=== PATIENT | female | born 1955 | race Caucasian/White ===

== ENCOUNTER 2018-04-17 23:49 | Observation (INO) | payer MEDICARE ==
--- NOTE | 2018-04-18 01:02 | PDOC ---
History of Present Illness - General Chief Complaint: Rash Stated Complaint: RASH ON BOTH LEGS Time Seen by Provider: 04/18/18 00:33 History Source: Patient Exam Limitations: No Limitations - History of Present Illness Initial Comments: 04/18/18 00:43 [id number] hx of htn, hypothyroidism presents with 1 week of progressing rash of her LE. pt notes the rash started on her L ankle, she thought iw as a small flea bite, but over the past 8 days it has gotten much worse and some of the spots seemed to coalace. THe pt notes it was itching and painful. pt was given keflex and a topical abx, and steroid by a doctor. pt notes the rash seemed to be spreading upwards, now has a spot on her hand. pt denies any other complaints including headache, n/v, f/c, joint pain, cough, sob, diarrhea, melena, bpr, easy bleeding/bruising. pt recently travelled from [facility] - lived in [facility] ([facility]) without travel to [place] no PMD [place] the [place] Past History - Past Medical History Allergies/Adverse Reactions: Allergies Allergy/AdvReac Type Severity Reaction Status Date / Time No Known Allergies Allergy Verified 04/18/18 00:21 Home Medications: Ambulatory Orders Amlodipine Besylate 10 mg PO DAILY 04/18/18 Cephalexin [Keflex] 500 mg PO BID 04/18/18 - Suicide/Smoking/Psychosocial Hx Smoking History: Never smoked Have you smoked in the past 12 months: No Information on smoking cessation initiated: No Hx Alcohol Use: No Drug/Substance Use Hx: No Review of Systems - Review of Systems Able to Perform ROS?: Yes Comments:: 04/18/18 01:12 Constitutional - no reported Fever, Chills, HEENT: no reported vision changes, sore throat Respiratory: no reported cough, sob, hemoptysis Cardiac: no reported chest pain, palpitations, light headedness, leg swelling Abd/GI: no reported abd pain, nausea, vomiting, blood per rectum, melena, diarrhea : no reported dysuria, frequency, discharge Musculskelatal - no reported back pain, joint swelling skin - rash reported bruising, erythema, neurological: no reported headache, numbness, focal weakness, tingling, ataxia, hematologic: no reported easy bruising, easy bleeding *Physical Exam - Vital Signs Last Vital Signs Temp Pulse Resp BP Pulse Ox 98.0 F 97 H 18 158/77 97 04/18/18 00:19 04/18/18 00:19 04/18/18 00:19 04/18/18 00:19 04/18/18 00:19 - Physical Exam Comments: 04/18/18 01:13 GENERAL: The patient is awake, alert, and fully oriented, Nontoxic - in no acute distress. HEAD: Normocephalic, atraumatic. EYES: extraocular movements intact, sclera anicteric, conjunctiva clear. ENT: Normal voice, Moist mucous membranes, no signs of lesions in the oral cavity. NECK: Normal range of motion, supple LUNGS: Breath sounds equal, clear to auscultation bilaterally. No wheezes, no rhonchi, no rales. HEART: Regular rate and rhythm, normal S1 and S2 without murmur, rub or gallop. ABDOMEN: Soft, nontender, normoactive bowel sounds. No guarding, no rebound. . No CVA tenderness EXTREMITIES: Normal range of motion, no edema. No clubbing or cyanosis. No cords, erythema, or tenderness. NEUROLOGICAL: No facial assymetry, Normal speech, PSYCH: Normal mood, normal affect. SKIN: petechia/purpuric lesions on the LE, wose on the ankles/shins, and becomes smaller in the shins/knees, raised, tender to palpation, no lesions on the chest/torso, face, palms, soles, oral mucusa Moderate Sedation - Procedure Monitoring Vital Signs: Procedure Monitoring Vital Signs Temperature 98.0 F 04/18/18 00:19 Pulse Rate 97 H 04/18/18 00:19 Respiratory Rate 18 04/18/18 00:19 Blood Pressure 158/77 04/18/18 00:19 O2 Sat by Pulse Oximetry (%) 97 04/18/18 00:19 Heart Score/ECG Review - ECG Impressions Comment:: 04/18/18 01:50 Twelve-lead EKG was performed and reviewed by me. There is normal sinus rhythm with a normal rate. Rate of 89 delayed r wave progression ED Treatment Course - LABORATORY CBC & Chemistry Diagram: 04/18/18 01:31 04/18/18 01:31 Medical Decision Making - Medical Decision Making 04/18/18 01:20 suspect vasculitis will ck basic labs will ck ekg 04/18/18 03:46 labs reviewd platelets wnl will admit for further mangement of vascultiis case dw dr. Norton, agree with obs for further mangement Case discussed in detail with admitting physician including history, physical exam and ancillary studies. Admitting physician has assumed care for the patient, will follow all pending diagnostics and will complete the evaluation and treatment. *DC/Admit/Observation/Transfer Diagnosis at time of Disposition: Purpura, Rash - Discharge Dispostion Condition at time of disposition: Stable Decision to Admit order: Yes - Referrals - Patient Instructions - Post Discharge Activity
[2018-04-18 01:49] LABS: BASO % 0.6 % (0-2.0); EOS % 2.7 % (0-4.5); HEMATOCRIT 41.1 % (32.4-45.2); HEMOGLOBIN 14.3 GM/dL (10.7-15.3); LYMPH % 32.7 % (8-40); MCH 28.4 pg (25.7-33.7); MCHC 34.8 g/dl (32.0-36.0); MEAN CELL VOLUME 81.7 fl (80-96); MEAN PLT VOLUME 8.3 fl (7.5-11.1); MONO % 8.7 % (3.8-10.2); NEUT % 55.3 % (42.8-82.8); PLATELET COUNT 265 K/MM3 (134-434); RBC 5.03 M/mm3 (3.60-5.2); WHITE BLOOD COUNT 9.5 K/mm3 (4.0-10.0)
[2018-04-18] MEDS ORDERED: ACETAMINOPHEN 325 MG TABLET (FP) PO ONE (02:35)
[2018-04-18 02:42] LABS: ALBUMIN 3.5 g/dl (3.4-5.0); ALK PHOS 132 U/L (45-117); ANION GAP 10 MMOL/L (8-16); BILIRUBIN,TOTAL 0.3 mg/dL (0.2-1); BLOOD UREA NITROGEN 29 mg/dL (7-18); CALCIUM 8.9 mg/dL (8.5-10.1); CHLORIDE 108 mmol/L (98-107); CO2 25 mmol/L (21-32); CREATININE 0.8 mg/dL (0.55-1.3); GLUCOSE,RANDOM 128 mg/dL (74-106); POTASSIUM 3.4 mmol/L (3.5-5.1); SGOT/AST 21 U/L (15-37); SGPT/ALT 45 U/L (13-61); SODIUM 143 mmol/L (136-145); TOT PROT 7.3 g/dl (6.4-8.2)
[2018-04-18 02:56] LABS: PROTHROMBIN TIME (PATIENT) 11.8 SEC (9.7-13.0)
[2018-04-18] MEDS ORDERED: ACETAMINOPHEN 325 MG TABLET (FP) ONE (03:00)
[2018-04-18] MEDS ORDERED: POTASSIUM CHLORIDE TABS 20 MEQ TABLET.ER (FP) PO ONE ×3 (05:03→05:53)
--- NOTE | 2018-04-18 05:18 | HP ---
<Anupama Jordan - Last Filed: 04/18/18 11:21> CHIEF COMPLAINT: PCP: HISTORY OF PRESENT ILLNESS: ER course was notable for: (1) (2) (3) Recent Travel: PAST MEDICAL HISTORY: PAST SURGICAL HISTORY: Social History: Smoking: Alcohol: Drugs: Family History: Allergies No Known Allergies Allergy (Verified 04/18/18 00:21) HOME MEDICATIONS: Home Medications Medication Instructions Recorded Amlodipine Besylate 10 mg PO DAILY 04/18/18 Bisoprolol Fumarate 5 mg PO DAILY 04/18/18 Levothyroxine [Synthroid -] 100 mcg PO DAILY 04/18/18 REVIEW OF SYSTEMS CONSTITUTIONAL: Absent: fever, chills, diaphoresis, generalized weakness, malaise, loss of appetite, weight change HEENT: Absent: rhinorrhea, nasal congestion, throat pain, throat swelling, difficulty swallowing, mouth swelling, ear pain, eye pain, visual changes CARDIOVASCULAR: Absent: chest pain, syncope, palpitations, irregular heart rate, lightheadedness , peripheral edema RESPIRATORY: Absent: cough, shortness of breath, dyspnea with exertion, orthopnea, wheezing, stridor, hemoptysis GASTROINTESTINAL: Absent: abdominal pain, abdominal distension, nausea, vomiting, diarrhea, constipation, melena, hematochezia GENITOURINARY: Absent: dysuria, frequency, urgency, hesitancy, hematuria, flank pain, genital pain MUSCULOSKELETAL: Absent: myalgia, arthralgia, joint swelling, back pain, neck pain SKIN: Absent: rash, itching, pallor HEMATOLOGIC/IMMUNOLOGIC: Absent: easy bleeding, easy bruising, lymphadenopathy, frequent infections ENDOCRINE: Absent: unexplained weight gain, unexplained weight loss, heat intolerance, cold intolerance NEUROLOGIC: Absent: headache, focal weakness or paresthesias, dizziness, unsteady gait, seizure, mental status changes, bladder or bowel incontinence PSYCHIATRIC: Absent: anxiety, depression, suicidal or homicidal ideation, hallucinations. PHYSICAL EXAMINATION Vital Signs - 24 hr 04/18/18 04/18/18 04/18/18 00:19 06:09 10:00 Temperature 98.0 F 98.5 F 98.0 F Pulse Rate 97 H Pulse Rate [ 88 74 Left Radial] Respiratory 18 19 18 Rate Blood Pressure 158/77 Blood Pressure 134/78 122/82 [Left Arm] O2 Sat by Pulse 97 99 98 Oximetry (%) GENERAL: Awake, alert, and fully oriented, in no acute distress. HEAD: Normal with no signs of trauma. EYES: Pupils equal, round and reactive to light, extraocular movements intact, sclera anicteric, conjunctiva clear. No lid lag. EARS, NOSE, THROAT: Ears normal, nares patent, oropharynx clear without exudates. Moist mucous membranes. NECK: Normal range of motion, supple without lymphadenopathy, JVD, or masses. LUNGS: Breath sounds equal, clear to auscultation bilaterally. No wheezes, and no crackles. No accessory muscle use. HEART: Regular rate and rhythm, normal S1 and S2 without murmur, rub or gallop. ABDOMEN: Soft, nontender, not distended, normoactive bowel sounds, no guarding, no rebound, no masses. No hepatomegaly or splenomegaly. MUSCULOSKELETAL: Normal range of motion at all joints. No bony deformities or tenderness. No CVA tenderness. UPPER EXTREMITIES: 2+ pulses, warm, well-perfused. No cyanosis. No clubbing. No peripheral edema. LOWER EXTREMITIES: 2+ pulses, warm, well-perfused. No calf tenderness. No peripheral edema. NEUROLOGICAL: Cranial nerves II-XII intact. Normal speech. Normal gait. PSYCHIATRIC: Cooperative. Good eye contact. Appropriate mood and affect. SKIN: Warm, dry, normal turgor, no rashes or lesions noted, normal capillary refill. Laboratory Results - last 24 hr 04/18/18 04/18/18 04/18/18 01:31 01:31 02:13 WBC 9.5 RBC 5.03 Hgb 14.3 Hct 41.1 MCV 81.7 MCH 28.4 MCHC 34.8 RDW 15.0 Plt Count 265 MPV 8.3 Absolute Neuts (auto) 5.3 Neutrophils % 55.3 Lymphocytes % 32.7 Monocytes % 8.7 Eosinophils % 2.7 Basophils % 0.6 Nucleated RBC % 0 ESR PT with INR 11.80 INR 1.00 Sodium 143 Potassium 3.4 L Chloride 108 H Carbon Dioxide 25 Anion Gap 10 BUN 29 H Creatinine 0.8 Creat Clearance w eGFR > 60 Random Glucose 128 H Hemoglobin A1c % Calcium 8.9 Phosphorus Magnesium Total Bilirubin 0.3 AST 21 ALT 45 Alkaline Phosphatase 132 H C-Reactive Protein Total Protein 7.3 Albumin 3.5 TSH 04/18/18 04/18/18 04/18/18 05:44 05:45 05:45 WBC 8.6 RBC 5.10 Hgb 13.7 Hct 42.5 MCV 83.3 MCH 26.9 MCHC 32.3 RDW 14.9 Plt Count 241 MPV 8.0 Absolute Neuts (auto) 4.5 Neutrophils % 52.0 Lymphocytes % 36.1 Monocytes % 8.1 Eosinophils % 3.2 Basophils % 0.6 Nucleated RBC % 0 ESR 28 PT with INR INR Sodium 143 Potassium 3.5 Chloride 111 H Carbon Dioxide 24 Anion Gap 8 BUN 27 H Creatinine 0.8 Creat Clearance w eGFR > 60 Random Glucose 108 H Hemoglobin A1c % 6.4 H Calcium 8.7 Phosphorus 3.6 Magnesium 2.2 Total Bilirubin 0.4 AST 20 ALT 44 Alkaline Phosphatase 125 H C-Reactive Protein 1.8 H Total Protein 7.2 Albumin 3.5 TSH 2.25 ASSESSMENT/PLAN: <Anyi Wilkes - Last Filed: 04/21/18 06:50> CHIEF COMPLAINT: Rash PCP: None HISTORY OF PRESENT ILLNESS: 62 y/o primarily estonian speaking F who recently arrived from [facility] , with a PMHx of HTN, Hypothyroidism presents with rash. The patient was accompanied by her Neice who provided the bulk of the history. Patients sister recently had a Kidney transplant and the patient [place] the [place] assist in her post-op care. Patient Initially noticed the rash on her Left ankle on 04/07 ; it appeared as small red dots that were itchy and woke her. She owns a small dog and initially believed these may have been flea bites. On 04/08 she traveled to [place] and on 04/09 she arrived in [place]. Since arrival, the rash has become more itchy, formed pustules that are draining pink fluid, started to spread cephalad from her ankles to her thighs and now on her R hand, and is accompanied by a 8/ 10 burning and stabbing pain. When she visited [place] about 4 years ago, she then also had a small rash localized to her Ankle however the rash today is much more severe. Since onset, patient has tried Aloe vera lotions, topical ABx, PO Keflex, hydroxyzine, and lidocaine cream, all of which have provided minimal relief. Patient says that no one else around her has any similar rash and she denies any hx of Rash. Patient takes her medications routinely and denies any recent medication changes. She denies any recent trauma, outdoor activity including hiking and farming, and any new soap or detergent use. Denies any recent abdominal pains, joint or muscle aches, fevers, chills, chest pain, SOB, nausea, vomiting, diarrhea, constipation, blurry vision. ER course was notable for: (1) Tylenol 650mg (2) (3) Recent Travel: Visiting from [facility] PAST MEDICAL HISTORY: HTN, Hypothyroidism PAST SURGICAL HISTORY: 3 C-Sections, Hysterectomy, Intestinal Hernia Repair Social History: Smoking: Quit 25 years ago; 1/2 ppd x 20 years prior Alcohol: Occasional Drugs: Denies Occupation: Retired, Mortgage Branch Manager prior Ambulation: without assistance Residence: Apartment in [facility] Family History: Mother: Esophageal Ca, HTN Father: Lupus, Emphysema Allergies No Known Allergies Allergy (Verified 04/18/18 00:21) HOME MEDICATIONS: Home Medications Medication Instructions Recorded Amlodipine Besylate 10 mg PO DAILY 04/18/18 Cephalexin [Keflex] 500 mg PO BID 04/18/18 REVIEW OF SYSTEMS As per HPI PHYSICAL EXAMINATION Vital Signs - 24 hr 04/18/18 00:19 Temperature 98.0 F Pulse Rate 97 H Respiratory 18 Rate Blood Pressure 158/77 O2 Sat by Pulse 97 Oximetry (%) GENERAL: A&Ox3, NAD HEAD: NCAT EYES: PERRL, EOMI EARS, NOSE, THROAT: Oropharynx clear without exudates. Moist mucous membranes. NECK: No JVD LUNGS: CTA b/l, No wheezes, no crackles. HEART: Regular rate and rhythm, normal S1 and S2 without murmur ABDOMEN: Soft, nontender, not distended, + bowel sounds, no guarding MUSCULOSKELETAL: No CVA tenderness. EXTREMITIES: 2+ pulses, R>L 1+ Pedal edema NEUROLOGICAL: Cranial nerves II-XII intact. Normal speech. Gross sensation intact throughout. 5/5 Muscle strength throughout. SKIN: Multiple Nonblanching, Petechia and palpable Purpuric lesions with few pustules present over b/l lower extremities circumferentially, most tender to palpation over the Left posterior ankle, draining some pink fluid. Small nontender petechiae present over dorsal Right hand and Anterior left forearm just inferior to the elbow joint without active drainage. Cool to touch. Laboratory Results - last 24 hr 04/18/18 04/18/18 04/18/18 01:31 01:31 02:13 WBC 9.5 RBC 5.03 Hgb 14.3 Hct 41.1 MCV 81.7 MCH 28.4 MCHC 34.8 RDW 15.0 Plt Count 265 MPV 8.3 Absolute Neuts (auto) 5.3 Neutrophils % 55.3 Lymphocytes % 32.7 Monocytes % 8.7 Eosinophils % 2.7 Basophils % 0.6 Nucleated RBC % 0 PT with INR 11.80 INR 1.00 Sodium 143 Potassium 3.4 L Chloride 108 H Carbon Dioxide 25 Anion Gap 10 BUN 29 H Creatinine 0.8 Creat Clearance w eGFR > 60 Random Glucose 128 H Calcium 8.9 Total Bilirubin 0.3 AST 21 ALT 45 Alkaline Phosphatase 132 H Total Protein 7.3 Albumin 3.5 ASSESSMENT/PLAN: 62 y/o F who recently arrived from [facility], with a PMHx of HTN, Hypothyroidism presents with rash #Nonblanching, Petechiae and Palpable Purpuric lesions -Consider Vasculitis; Less likely cellulitis (AFebrile, No WBC count, Not warm or weeping) -ESR, CRP, SCOTT, RF, ANCA, UA, Hep C, HIV, Blood Cx, UA Pending -Pain control via Lyrica 75mg Daily and Acetaminophen -Will likely need Skin Bx -Dermatology (Dr. Keita) consulted -Rheumatology (Dr. Estrada) consulted #HTN -158/77 in ED -Will restart home dose Amlodipine, Bisoprolol -Continue to monitor #HypoKalemia -3.4 on initial BMP -40 mEq KDur given -Recheck #Elevated Blood glucose -A1c pending -Continue to monitor #Elevated Alkaline Phosphate -Trend CMP -Consider further imaging studies if levels continue to rise #Hx of Hypothyroidism -TSH pending -Continue home dose Levothyroxine #FEN -PO Fluids -Continue to monitor for hypokalemia -Regular diet #PPx -DVT: Heparin TID Dispo: Med-Surg Obs Visit type - Emergency Visit Emergency Visit: Yes ED Registration Date: 04/18/18 Care time: The patient presented to the Emergency Department on the above date and was hospitalized for further evaluation of their emergent condition. - New Patient This patient is new to me today: Yes Date on this admission: 04/21/18 - Critical Care Critical Care patient: No
--- NOTE | 2018-04-18 05:27 | PN ---
Teaching Attending Note Name of Resident: Anyi Wilkes ATTENDING PHYSICIAN STATEMENT I saw and evaluated the patient. I reviewed the resident's note and discussed the case with the resident. I agree with the resident's findings and plan as documented. SUBJECTIVE: Seen and examined; please refer to resident note for further historical information. Briefly, this is a 62 y/o CF with a PMH as documented who presents for a b/l LE rash that is gradually spreading. It is splotchy and purpuric in locations with some blisters that drain a serosanguinous fluid. There is no surrounding erythema. Nobody else she knows has the rash, nor does she have any sick contacts. No new medications aside from hydroxyzine taken once. She is here from [facility]; her sister got a renal XP so she came here on 04/09 to help care for her family members. The rash is spreading up her lower extremity and is now up to her thighs and even with some splotches above. All with irregular shapes, somewhat painful, non-pruritic. She has never had these symptoms before. She was bitten by a mosquito recently. Admitting to medicine with derm and rheum consult. 10 sys ROS done and negative aside from HPI PMH (HTN, hypothyroidism) and PSH reviewed FH negative for AI conditions Socially denies alcohol, tobacco, or drug abuse Meds (LT4 100mcg, Amlodipine 10mg, bisoprolol) reviewed; reconciliation pending OBJECTIVE: VS, labs, imaging reviewed NAD, AAO, resting in bed with family in the room RRR s1/2 no mgr Lungs CTAB w/ sym exp Rash with splotchy purpura extending from the feet to the upper thighs with varrying sizes, irregular borders, are somewhat raised. Some blisters crusted over within the purpuric spots with serosanginous drainage. ASSESSMENT AND PLAN: Mrs. Christina recently came to [place] from [facility] and has a purpuric rash extending up her lower extremities. 1) Purpuric Rash on LE -No wbc, no obvious celulitis. Raises suspicion for vasculitis or a more esoteric process. Suspect parts of hx include [place], mosquito bite. -Pain control with lyrica given burning neuropathic-sounding pain; can consider PRN morphine if additional pain control needed. PRN APAP as well. -Workup pending. Checking ESR, CRP, SCOTT, RF, ANCA, HIV, HCV Ab. Will likely need skin bx so consulting derm. Given the concern for vasculitis, etc. will also involve rheumatology. -Holding off steroids for now; would like to speak with consultants first and it is nearly shift change. She is stable. 2) HTN -Continue home meds; monitor BP keep <160 3) Hypothyroidism -Check TSH; continue home LT4 4) Elevated Alk Phos -Mild elevation; trend CMP. If worsens consider further imaging, etc. Full Code
[2018-04-18 06:03] LABS: BASO % 0.6 % (0-2.0); EOS % 3.2 % (0-4.5); HEMATOCRIT 42.5 % (32.4-45.2); HEMOGLOBIN 13.7 GM/dL (10.7-15.3); LYMPH % 36.1 % (8-40); MCH 26.9 pg (25.7-33.7); MCHC 32.3 g/dl (32.0-36.0); MEAN CELL VOLUME 83.3 fl (80-96); MONO % 8.1 % (3.8-10.2); PLATELET COUNT 241 K/MM3 (134-434); RDW 14.9 % (11.6-15.6); WHITE BLOOD COUNT 8.6 K/mm3 (4.0-10.0)
[2018-04-18] MEDS ORDERED: HEPARIN NA (PORCINE) 5,000 UNITS/ML 1ML VIAL ONE ×2 (06:03→14:05)
[2018-04-18] MEDS: LEVOTHYROXINE NA 100 MCG TABLET (FP) PO SCH (06:06)
[2018-04-18] MEDS: HEPARIN NA (PORCINE) 5,000 UNITS/ML 1ML VIAL SQ SCH ×3 (06:06→22:04)
[2018-04-18 06:43] LABS: ALBUMIN 3.5 g/dl (3.4-5.0); ALK PHOS 125 U/L (45-117); ANION GAP 8 MMOL/L (8-16); BILIRUBIN,TOTAL 0.4 mg/dL (0.2-1); BLOOD UREA NITROGEN 27 mg/dL (7-18); CALCIUM 8.7 mg/dL (8.5-10.1); CHLORIDE 111 mmol/L (98-107); CO2 24 mmol/L (21-32); CREATININE 0.8 mg/dL (0.55-1.3); GLUCOSE,RANDOM 108 mg/dL (74-106); MAGNESIUM 2.2 mg/dL (1.8-2.4); PHOSPHOROUS 3.6 mg/dL (2.5-4.9); POTASSIUM 3.5 mmol/L (3.5-5.1); SGOT/AST 20 U/L (15-37); SGPT/ALT 44 U/L (13-61); SODIUM 143 mmol/L (136-145); TOT PROT 7.2 g/dl (6.4-8.2)
[2018-04-18 07:01] LABS: ERYTHROCYTE SEDIMENTATION RATE 28 mm/hr (0-30)
[2018-04-18] MEDS ORDERED: PREGABALIN 75 MG CAPSULE PO SCH (10:00)
[2018-04-18] MEDS ORDERED: PREGABALIN 50 MG CAPSULE ONE (10:32)
[2018-04-18] MEDS: ATENOLOL 50 MG TABLET (FP) PO SCH (11:08)
[2018-04-18] MEDS: amLODIPine BESYLATE 10 MG TABLET (FP) PO SCH (11:08)
--- NOTE | 2018-04-18 11:14 | PN ---
Physical Exam: SUBJECTIVE: Patient seen and examined at bedside. Admits to worsening vasculitic rash that is tender upon palpation. Now presents with rash spreading up to lower abdomen. OBJECTIVE: Vital Signs Temperature 98.0 F 04/18/18 10:00 Pulse Rate 74 04/18/18 10:00 Respiratory Rate 18 04/18/18 10:00 Blood Pressure 122/82 04/18/18 10:00 O2 Sat by Pulse Oximetry (%) 98 04/18/18 10:00 GENERAL: A&Ox3, NAD HEAD: NCAT EYES: PERRL, EOMI EARS, NOSE, THROAT: Oropharynx clear without exudates. Moist mucous membranes. NECK: No JVD LUNGS: CTA b/l, No wheezes, no crackles. HEART: Regular rate and rhythm, normal S1 and S2 without murmur ABDOMEN: Soft, nontender, not distended, + bowel sounds, no guarding MUSCULOSKELETAL: No CVA tenderness. EXTREMITIES: 2+ pulses, R>L 1+ Pedal edema NEUROLOGICAL: Cranial nerves II-XII intact. Normal speech. Gross sensation intact throughout. 5/5 Muscle strength throughout. SKIN: Multiple Nonblanching, Petechia and palpable Purpuric lesions with few pustules present over b/l lower extremities circumferentially, most tender to palpation over the Left posterior ankle, draining some pink fluid. Small nontender petechiae present over dorsal Right hand and Anterior left forearm just inferior to the elbow joint without active drainage. Cool to touch. CBCD WBC 8.6 K/mm3 (4.0-10.0) 04/18/18 05:45 RBC 5.10 M/mm3 (3.60-5.2) 04/18/18 05:45 Hgb 13.7 GM/dL (10.7-15.3) 04/18/18 05:45 Hct 42.5 % (32.4-45.2) 04/18/18 05:45 MCV 83.3 fl (80-96) 04/18/18 05:45 MCHC 32.3 g/dl (32.0-36.0) 04/18/18 05:45 RDW 14.9 % (11.6-15.6) 04/18/18 05:45 Plt Count 241 K/MM3 (134-434) 04/18/18 05:45 MPV 8.0 fl (7.5-11.1) 04/18/18 05:45 CMP Sodium 143 mmol/L (136-145) 04/18/18 05:45 Potassium 3.5 mmol/L (3.5-5.1) 04/18/18 05:45 Chloride 111 mmol/L (98-107) H 04/18/18 05:45 Carbon Dioxide 24 mmol/L (21-32) 04/18/18 05:45 Anion Gap 8 MMOL/L (8-16) 04/18/18 05:45 BUN 27 mg/dL (7-18) H 04/18/18 05:45 Creatinine 0.8 mg/dL (0.55-1.3) 04/18/18 05:45 Creat Clearance w eGFR > 60 (>60) 04/18/18 05:45 Calcium 8.7 mg/dL (8.5-10.1) 04/18/18 05:45 Total Bilirubin 0.4 mg/dL (0.2-1) 04/18/18 05:45 AST 20 U/L (15-37) 04/18/18 05:45 ALT 44 U/L (13-61) 04/18/18 05:45 Alkaline Phosphatase 125 U/L (45-117) H 04/18/18 05:45 Total Protein 7.2 g/dl (6.4-8.2) 04/18/18 05:45 Albumin 3.5 g/dl (3.4-5.0) 04/18/18 05:45 Active Medications Acetaminophen (Tylenol -) 650 mg PO Q6H PRN PRN Reason: Fever Or Pain Level 1-5 Amlodipine Besylate (Norvasc -) 10 mg PO DAILY [facility] Last Admin: 04/18/18 11:08 Dose: Not Given Atenolol (Tenormin -) 50 mg PO DAILY [facility] Last Admin: 04/18/18 11:08 Dose: 50 mg Heparin Sodium (Porcine) (Heparin -) 5,000 unit SQ TID [facility] Last Admin: 04/18/18 06:06 Dose: 5,000 unit Levothyroxine Sodium (Synthroid -) 100 mcg PO DAILY@0700 [facility] Last Admin: 04/18/18 06:06 Dose: 100 mcg Pregabalin (Lyrica -) 75 mg PO DAILY [facility] Last Admin: 04/18/18 11:08 Dose: Not Given CONSULTS Derm: Dr. Keita Rheumatology: Dr. Estrada ASSESSMENT/PLAN: 62 y/o F who recently arrived from [facility], with a PMHx of HTN, Hypothyroidism presents with a rash since 04/09/18. #Nonblanching, Petechiae and Palpable Purpuric lesions -Consider Vasculitis; Less likely cellulitis (AFebrile, No WBC count, Not warm or weeping) -ESR, CRP, SCOTT, RF, ANCA, UA, Hep C, HIV, Blood Cx, UA Pending -Pain control via Lyrica 75mg Daily and Acetaminophen -Will likely need Skin Bx -Dermatology (Dr. Keita) consulted; await recs -Rheumatology (Dr. Estrada) consulted; await recs #HTN; Stable, BP 122/82 this AM. -Cont home med(s): Amlodipine 10 QD, Atenolol 50 QD -Continue to monitor #Hypokalemia; 3.4 > now 3.5. -40 mEq KDur given -Recheck #Elevated Blood glucose; Hgb 6.4% -Continue to monitor #Elevated Alkaline Phosphate; 132 > 125 today. -Consider further imaging studies if levels continue to rise #Hx of Hypothyroidism; TSH 2.25 -Cont home med: Levothyroxine 100 mcg QD #FEN -PO Fluids -Continue to monitor for hypokalemia -Regular diet #PPx -DVT: Heparin TID Dispo: Med-Surg Obs Visit type - Emergency Visit Emergency Visit: Yes ED Registration Date: 04/18/18 Care time: The patient presented to the Emergency Department on the above date and was hospitalized for further evaluation of their emergent condition. - New Patient This patient is new to me today: Yes Date on this admission: 04/18/18 - Critical Care Critical Care patient: No
--- NOTE | 2018-04-18 11:54 | EKG ---
Test Reason : Blood Pressure : / mmHG Vent. Rate : 089 BPM Atrial Rate : 089 BPM P-R Int : 160 ms QRS Dur : 084 ms QT Int : 384 ms P-R-T Axes : 030 -22 114 degrees QTc Int : 467 ms NORMAL SINUS RHYTHM LEFT VENTRICULAR HYPERTROPHY WITH REPOLARIZATION ABNORMALITY ABNORMAL ECG NO PREVIOUS ECGS AVAILABLE Confirmed by ESTHER GREEN, DAMIÁN ([id number]) on 04/18/2018 11:53:47 AM Referred By: Confirmed By:DAMIÁN SANTANA MD
[2018-04-18 12:02] LABS: URINE APPEARANCE CLEAR; URINE BILIRUBIN NEGATIVE (<2.0 mg/dL); URINE COLOR YELLOW; URINE GLUCOSE (UA) NEGATIVE (NEGATIVE); URINE KETONE NEGATIVE (NEGATIVE); URINE LEUK ESTERASE NEGATIVE (NEGATIVE); URINE NITRITE NEGATIVE (NEGATIVE); URINE PROTEIN NEGATIVE (NEGATIVE); URINE UROBILINOGEN NEGATIVE mg/dL (0.2-1.0)
--- NOTE | 2018-04-18 18:36 | PN ---
Teaching Attending Note Name of Resident: Anupama Jordan ATTENDING PHYSICIAN STATEMENT I saw and evaluated the patient. I reviewed the resident's note and discussed the case with the resident. I agree with the resident's findings and plan as documented. SUBJECTIVE: No fever or chills. no abd pain, no CP. burning sensation in feet and swelling. NO hx of blood transfusion or IVDU . what she though was a mosquito bite was the beginning of there hemorrhagic lesions. no ulcers in mouth . no diarrhea sister had renal tx for glumerulonephritis , and father had lupus . no recent change in meds OBJECTIVE: NAD , pleasant and cooperative. AAox3 CV: RRR, no MRG lungs: CTAB Abd: soft, NT, ND , NLBS Ext and skin : edema on legs and feet. non blanching rash with macules, papules , and patches of dark, purpuritic, vesicular , hemorrhagic fluid . rash is tender and extends to lower gluteal areas. with small lesions on lower back and upper arms no lesions on MM or palms and soles . ASSESSMENT AND PLAN: 62 y/o lady with h/o hypothyroidism and HTN who presented with rash . 1-Hemorrhagic Rash/purpura: unclear etiology. In DDx vasculitis, Dengue fever, , cryoglubulinemia, Henoch -schonlein purpura. Randy Jef is unlikely - hold off any specific treatment as it is unclear what it is - check Dengue Abx . - CRP slightly elevated and ESR Nl - follow HCV, ANCA , HIV - check UA to look fro any active sediment . sister had glumerulonephritis - check HSV PCR - still not seen by Dr. ridley or derm. - call placed for Dr. Ridley as rash is extending . 2- hypothyroidism: cont synthroid 3- HTN : Norvasc hold heparin products for now
[2018-04-18 20:41] VITALS: BMI 33.7
[2018-04-18] MEDS ORDERED: MELATONIN 5 MG TABLETS PO PRN (22:00)
[2018-04-18] MEDS: ACETAMINOPHEN 325 MG TABLET (FP) PO PRN (22:07)
[2018-04-19 01:44] VITALS: TEMP 98.4
[2018-04-19 05:53] VITALS: BP 101/61; PULSE 56
[2018-04-19] MEDS: HEPARIN NA (PORCINE) 5,000 UNITS/ML 1ML VIAL SQ SCH (05:56)
[2018-04-19] MEDS: LEVOTHYROXINE NA 100 MCG TABLET (FP) PO SCH (06:01)
[2018-04-19 07:08] LABS: HEMATOCRIT 39.8 % (32.4-45.2); HEMOGLOBIN 12.6 GM/dL (10.7-15.3); MCH 26.5 pg (25.7-33.7); MCHC 31.7 g/dl (32.0-36.0); MEAN CELL VOLUME 83.7 fl (80-96); MEAN PLT VOLUME 8.2 fl (7.5-11.1); PLATELET COUNT 230 K/MM3 (134-434); RBC 4.76 M/mm3 (3.60-5.2); RDW 15.5 % (11.6-15.6); WHITE BLOOD COUNT 6.6 K/mm3 (4.0-10.0)
[2018-04-19 07:36] LABS: ANION GAP 6 MMOL/L (8-16); BLOOD UREA NITROGEN 25 mg/dL (7-18); CALCIUM 8.6 mg/dL (8.5-10.1); CHLORIDE 112 mmol/L (98-107); CO2 24 mmol/L (21-32); CREATININE 0.7 mg/dL (0.55-1.3); GLUCOSE,RANDOM 103 mg/dL (74-106); POTASSIUM 3.7 mmol/L (3.5-5.1); SODIUM 142 mmol/L (136-145)
[2018-04-19] MEDS: ATENOLOL 50 MG TABLET (FP) PO SCH (11:37)
[2018-04-19] MEDS: amLODIPine BESYLATE 10 MG TABLET (FP) PO SCH (11:38)
[2018-04-19] MEDS: ACETAMINOPHEN 325 MG TABLET (FP) PO PRN (11:38)
--- NOTE | 2018-04-19 15:16 | DS ---
Physical Exam: SUBJECTIVE: Patient seen and examined at bedside. Earlier this AM, c/o difficulty ambulating and burning sensation in lower extremities. Also stated that purpura started to ascend and involve the dorsal aspect of her R hand. Signed out AMA before I could come reevaluate or explain risks and benefits of leaving OBJECTIVE: Vital Signs Period Temp Pulse Resp BP Sys/Smyth Pulse Ox Last 24 Hr 98 F-98.5 F 54-63 18-20 101-124/61-81 96-99 PHYSICAL EXAM (from earlier in AM) GENERAL: The patient is awake, alert, and fully oriented, in no acute distress. HEAD: Normal with no signs of trauma. EYES: PERRL, extraocular movements intact, sclera anicteric, conjunctiva clear. ENT: Ears normal, nares patent, oropharynx clear without exudates NECK: Trachea midline, supple. LUNGS: Breath sounds equal, clear to auscultation bilaterally, no wheezes, no crackles, no accessory muscle use. HEART: Regular rate and rhythm, S1, S2 without murmur, rub or gallop. ABDOMEN: Soft, nontender, nondistended, normoactive bowel sounds EXTREMITIES: 2+ pt pulses, with significant pedal edema (2-3+). +scattered purpura with superimposed bullae, dry today without drainage. on lower extremities, dorsal aspect of shins and lower thighs. R dorsal hand: with single purpura lesion. lesions are nonblanching NEUROLOGICAL: Cranial nerves II through XII grossly intact. antalgic gait PSYCH: Normal mood, normal affect. SKIN: Warm, dry, normal turgor LABS Laboratory Results - last 24 hr 04/18/18 04/18/18 04/19/18 05:45 05:45 06:00 WBC 6.6 RBC 4.76 Hgb 12.6 Hct 39.8 MCV 83.7 MCH 26.5 MCHC 31.7 L RDW 15.5 Plt Count 230 MPV 8.2 Rheumatoid Arth Biomark 11.9 Hep C Ab Diagnostic 0.2 HIV Genotype Non reactive 04/19/18 06:00 Sodium 142 Potassium 3.7 Chloride 112 H Carbon Dioxide 24 Anion Gap 6 L BUN 25 H Creatinine 0.7 Creat Clearance w eGFR > 60 Random Glucose 103 Calcium 8.6 Additional testing 04/18/18 04/18/18 05:45 11:45 Urine Color Yellow Urine Appearance Clear Urine pH 5.0 Ur Specific [place] 1.019 Urine Protein Negative Urine Glucose (UA) Negative Urine Ketones Negative Urine Blood Negative Urine Nitrite Negative Urine Bilirubin Negative Urine Urobilinogen Negative Ur Leukocyte Esterase Negative Rheumatoid Arth Biomark 11.9 SCOTT Screen Pending c-ANCA Pending Proteinase 3 (PR3) Pending p-ANCA Pending Atypical p-ANCA Pending Myeloperoxidase Ab Pending 04/18/18 04/18/18 05:45 05:45 ESR 28 C-Reactive Protein 1.8 H 04/18/18 04/18/18 04/18/18 01:31 05:45 10:00 RPR Titer Nonreactive Dengue Fever IgG Ab Pending Dengue Fever IgM Ab Pending Hep Bs Antibody, Quant Hep B Core IgM Ab Hepatitis Be Antibody Hepatitis Be Antigen Hep C Ab Diagnostic 0.2 HSV I DNA Quant (PCR) HSV II DNA Quant (PCR) HIV Genotype Non reactive HOSPITAL COURSE: Date of Admission:04/18/18 Date of Discharge: 04/19/18 Admit diagnosis: Hemorrhagic rash/purpura 62 y/o Vietnamese speaking F who recently arrived from [facility], with PMH of HTN, Hypothyroidism who presented with rash that developed over the past 2 weeks. Most of hx from niece. States that she initially noticed a rash on her L ankle on 04/07; it consisted of petechiae that were pruritic, waking her up from sleep. Initially she had thought they were flea bites as she owns a dog. On 04/08/18, she traveled to [place] and on 04/09/18 she arrived in [place]. Since her arrival, the rash has become more pruritic, formed pustules with light pink drainage, and have started to spread cephalad from her ankles to her thigh area. More recently, the dorsal aspect of her R hand has been involved with additional purpuric lesion. Lesions are non-blanching, and those on her lower extremities are a/w 8/10, burning and stabbing pains. Since its onset, pt has tried Aloe vera lotions, topical abx, PO Keflex, hydroxyzine, and lidocaine cream, all of which have provided minimal relief. No recent sick contacts. States that she takes her medications routinely and denies any recent medication changes, recent trauma, outdoor activities including hiking and farming, or any new soap or detergent use. Also denies any recent abdominal pains, joint or muscle aches, fevers, chills, chest pain, SOB, nausea, vomiting , diarrhea, constipation, blurry vision. After being admitted to the hospital, pt was managed on the floor for her pain using Tylenol. Additional lab w/u was sent . Including ab titers, dengue, hepatitis B, C, HSV 1,2, HIV, ESR, CRP, ANCAs, PR3, MPO. Thus far, of her labs HIV, HCV, RPR have returned (-), and UA was (-) for any infection or signs of glomerulonephritis. Rheum and dermatology were consulted. However today pt signed to leave AMA before my re-evaluation and discussion of risks of leaving. As per niece, she wants to be seen at a different facility. Minutes to complete discharge: 33 Discharge Summary Reason For Visit: RASH ON BOTH LEGS Current Active Problems Purpura (Acute) Rash (Acute) Condition: Stable - Instructions Disposition: AGAINST MEDICAL ADVICE - Home Medications Comprehensive Discharge Medication List: Ambulatory Orders Amlodipine Besylate 10 mg PO DAILY 04/18/18 Bisoprolol Fumarate 5 mg PO DAILY 04/18/18 Levothyroxine [Synthroid -] 100 mcg PO DAILY 04/18/18 This patient is new to me today: No Emergency Visit: No Critical Care patient: No - Discharge Referral Referred to [facility] Med P.C.: No
--- NOTE | 2018-04-19 15:33 | PN ---
Teaching Attending Note Name of Resident: Alena Neves ATTENDING PHYSICIAN STATEMENT I saw and evaluated the patient. I reviewed the resident's note and discussed the case with the resident. I agree with the resident's findings and plan as documented. SUBJECTIVE: No fever or chills. still burning and pain and swelling in her legs and feet . no SOB . OBJECTIVE: NAD CV: RRR, lungs: CTAB Abd: soft, NT, ND, NL BS Ext and skin: edema on legs and feet. non blanching rash with macules, papules , and patches of dark, purpuritic, vesicular , hemorrhagic fluid . rash is tender and extends to lower gluteal areas. with small lesions on lower back and upper arms. new lesions on dorsal hands no lesions on MM or palms and soles or MM . ASSESSMENT AND PLAN: 62 y/o lady with h/o hypothyroidism and HTN who presented with rash . 1-Hemorrhagic Rash/purpura: still wide DDX - still pending : dengue fever Abx, HSV BAs, HCV, ANCA, ,,, - today I hear a murmur. likely of no significance , and unlikely her skin findings are due to septic emboli . echo was recommended though. family agree and aware -patient and family are frustrated as patient was not seen by rheum and derm yet and they will sign AMA to go get evaluated at [facility] 2- hypothyroidism: cont synthroid 3- HTN : Norvasc dispo : AMA to get evaluated at [facility]
[2018-04-19] MEDS ORDERED: amLODIPine BESYLATE 10 MG TABLET (FP) PO ONE (22:00)
[2018-04-20 06:37] LABS: HEPATITIS B CORE ANTIBODY,IGM Negative (Negative)
[2018-04-21 17:15] LABS: ATYPICAL pANCA <1:20 titer (Neg:<1:20); C-ANCA <1:20 titer (Neg:<1:20); P-ANCA <1:20 titer (Neg:<1:20)
== END 2018-04-19 13:00 | disposition left against medical advice (07) ==
LOC: JER 23:49 → JERBED 04-18 03:47 → J7W 04-18 19:07
PROVIDERS: ADMIT Internal Medicine; ATTEND Internal Medicine
PROC: 3E013GC Introduction of Other Therapeutic Substance into Subcutaneous Tissue, Percutaneous Approach (ICD-10-PCS; principal; 2018-04-18)
DX: D69.2 Other nonthrombocytopenic purpura (principal); I10 Essential (primary) hypertension; E87.6 Hypokalemia; E03.9 Hypothyroidism, unspecified; R73.09 Other abnormal glucose; R74.8 Abnormal levels of other serum enzymes
CPT/HCPCS: 36415; 80048; 80053; 81003; 83036; 83520; 83735; 84100; 84443; 85025; 85027; 85610; 85651; 86038; 86140; 86256; 86317; 86431; 86593; 86705; 86707; 86790; 86803; 87040; 87350; 87389; 87529; 93005; 93010; 96372; 99285-25; G0378; J1644